=== PATIENT | female | born 1985 | race Caucasian/White ===

== ENCOUNTER 2016-11-11 16:21 | Emergency (ER) | payer OTHER ==
[~2016-11-11] VITALS: Ht 172.7 cm; Wt 54.4 kg
[2016-11-11 17:06] VITALS: BP 125/76
[2016-11-11 17:28] LABS: BASOPHILS % (AUTO) 1.2 % (0.0-2.0); EOSINOPHILS % (AUTO) 3.1 % (0.0-3.0); LYMPHOCYTES % (AUTO) 43.6 % (20.0-45.0); MEAN CORPUSCULAR HEMOGLOBIN 32.8 PG (27.0-31.0); MEAN CORPUSCULAR HGB CONC 35.4 G/DL (32.0-36.0); MEAN CORPUSCULAR VOLUME 93 FL (80-99); MEAN PLATELET VOLUME 8.3 FL (6.5-10.1); MONOCYTES % (AUTO) 6.6 % (1.0-10.0); NEUTROPHILS % (AUTO) 45.6 % (45.0-75.0); PLATELET COUNT 239 K/UL (150-450); RED BLOOD COUNT 3.96 M/UL (4.20-5.40); RED CELL DISTRIBUTION WIDTH 12.3 % (11.6-14.8); WHITE BLOOD COUNT 6.5 K/UL (4.8-10.8)
[2016-11-11] MEDS ORDERED: D5 1/2NS 1,000 ML IV SCH (17:40)
[2016-11-11 17:45] LABS: ALANINE AMINOTRANSFERASE 20 U/L (3-33); ALBUMIN/GLOBULIN RATIO 1.5 (1.0-2.7); ANION GAP 13 (5-15); ASPARTATE AMINO TRANSFERASE 23 U/L (5-40); CALCIUM 9.1 mg/dL (8.6-10.2); CARBON DIOXIDE 27 mEQ/L (20-30); CHLORIDE 99 mEQ/L (98-107); CREATININE 0.9 mg/dL (0.5-0.9); GLOMERULAR FILTRATION RATE > 60 mL/min (>60); HEMOLYSIS 5; LIPASE 77 U/L (< 60); POTASSIUM 3.9 mEQ/L (3.4-4.9); SODIUM 139 mEQ/L (135-145); TOTAL PROTEIN 6.3 g/dL (6.6-8.7)
[2016-11-11 19:13] VITALS: BP 125/92
[2016-11-11 19:20] LABS: APPEARANCE,URINE CLOUDY; KETONES,URINE NEGATIVE (NEGATIVE); LEUKOCYTE ESTERASE ,URINE NEGATIVE (NEGATIVE); NITRITE,URINE NEGATIVE (NEGATIVE); PH,URINE 8 (4.5-8.0); PROTEIN,URINE NEGATIVE (NEGATIVE); UROBILINOGEN,URINE NORMAL MG/DL (0.0-1.0)
[2016-11-11 19:27] LABS: AMORPHOUS SEDIMENT,UR MANY /LPF; BACTERIA,URINE MODERATE /HPF; RBC,URINE 0-2 /HPF (0 - 2); SQUAMOUS EPITHELIAL CELL,UR FEW /LPF (NONE/OCC); WBC,URINE 0-2 /HPF (0 - 2)
[2016-11-11 21:13] VITALS: BP 120/71
--- NOTE | 2016-11-11 21:35 | Emergency Room Report ---
History of Present Illness General Chief Complaint: Abdominal Pain Source: Patient Present Illness HPI This patient states that her symptoms initially started about 2 weeks ago. She states that she had abdominal pain that initially was in her upper abdomen. She states that it then migrated to her right and left lower abdomen. She states that when she looked on lying she thought she had pancreatitis. She does reported that she had a binge drinking episode just prior to the onset of the symptoms. The patient states that the only medications she is on is control. She denies drug use. She does smoke tobacco. She states that she's also had hematuria for the past day. She denies dysuria. She denies fever or chills. She denies chest pain or shortness of breath. Although, she has had fatigue and some shortness of breath on exertion. Patient states that her menstrual period was about 2 weeks ago. She does admit that she did miss 2 days of her control pills and may have some vaginal bleeding related to this. Allergies: Coded Allergies: No Known Allergies (Unverified , 11/11/16) Patient History Past Medical History: none, see triage record Past Surgical History: none Social History: Reports: alcohol use, smoking, Denies: drug use Last Menstrual Period: 10/31/16 Now: No Reviewed Nursing Documentation: PMH: Agreed, PSxH: Agreed Nursing Documentation-PMH Past Medical History: No Stated History Review of Systems All Other Systems: negative except mentioned in HPI Physical Exam Vital Signs Date Time Temp Pulse Resp B/P Pulse Ox O2 Delivery O2 Flow Rate FiO2 11/11/16 16:30 98.1 84 16 126/75 99 Room Air Sp02 EP Interpretation: reviewed, normal General Appearance: no apparent distress, alert, GCS 15, non-toxic Head: normocephalic, atraumatic Eyes: bilateral eye PERRL, bilateral eye normal inspection ENT: hearing grossly normal, normal pharynx, no angioedema, normal voice Neck: full range of motion, supple/symm/no masses Respiratory: chest non-tender, lungs clear, normal breath sounds, speaking full sentences Cardiovascular #1: regular rate, rhythm, no edema Gastrointestinal: normal bowel sounds, soft, non-distended, no guarding, no rebound, tenderness - TTP RLQ Rectal: deferred Musculoskeletal: back normal, gait/station normal, normal range of motion, non- tender Neurologic: alert, oriented x3, responsive, motor strength/tone normal, sensory intact, speech normal Psychiatric: judgement/insight normal, memory normal, mood/affect normal, no suicidal/homicidal ideation Skin: normal color, no rash, warm/dry, well hydrated Medical Decision Making Diagnostic Impression: Primary Impression: Mesenteric edema Additional Impressions: Elevated Right heart pressure Moses-portal Edema ER Course This patient presents with 2 weeks of abdominal pain and gross hematuria. On examination, the patient's to palpation in the right lower quadrant. She also complained of hematuria so I felt that I should obtain a CT of the abdomen and pelvis to further assess for appendicitis and urolithiasis. There is no evidence of appendicitis or urolithiasis on CT. Further, the patient's initial urinalysis has no red blood cells and therefore there is no evidence of hematuria. Later during the patient's ED course she did urinate and then showed me blood in the toilet that was more consistent with menstrual type bleeding. I did suggest to the patient that we could obtain a cath urinalysis to definitively determine this. However, she declined catheterization. I have low suspicion for hematuria at this time. It is very reassuring that there is no evidence of urolithiasis. The patient is incidentally found to have evidence of very poor no edema, mesenteric edema consistent with elevated right heart pressure. Patient does not report any chest pain or pedal edema. I did obtain a chest x-ray which was unremarkable with a normal cardiac silhouette and lung low. Also, d-dimer is negative which essentially rules out PE. I am unsure of the etiology of the patient's moses-portal edema. The patient does have a slightly elevated lipase. This could be a resolving pancreatitis. Especially given the patient's symptoms started after a binge drinking episode. Unsure of the patient's abdominal findings on CT. This could be pulmonary hypertension. I had planned on admitting this patient. However, the patient's insurance did not approve admission to [facility] and requested the patient's transfer to [facility]. The patient is stable for transfer. However, the patient adamantly declined to transfer to [facility]. She states she is uncomfortable at this hospital. The patient was educated by registration that she could put down a deposit to be admitted to this hospital and that she may be billed for the hospitalization. The patient decided to leave AGAINST MEDICAL ADVICE and not be transferred to [facility]. Patient is stable with normal vital signs. She was instructed to followup closely with her primary care physician for further referrals to likely a personnel security specialist and possibly a internal control specialist for further investigation. Other considerations include close monitoring and repeat imaging. Regardless, the patient was invited to return for any worsening symptoms. She left AGAINST MEDICAL ADVICE. Labs Test 11/11/16 16:55 11/11/16 18:00 White Blood Count 6.5 K/UL (4.8-10.8) Red Blood Count 3.96 M/UL (4.20-5.40) Hemoglobin 13.0 G/DL (12.0-16.0) Hematocrit 36.7 % (37.0-47.0) Mean Corpuscular Volume 93 FL (80-99) Mean Corpuscular Hemoglobin 32.8 PG (27.0-31.0) Mean Corpuscular Hemoglobin Concent 35.4 G/DL (32.0-36.0) Red Cell Distribution Width 12.3 % (11.6-14.8) Platelet Count 239 K/UL (150-450) Mean Platelet Volume 8.3 FL (6.5-10.1) Neutrophils (%) (Auto) 45.6 % (45.0-75.0) Lymphocytes (%) (Auto) 43.6 % (20.0-45.0) Monocytes (%) (Auto) 6.6 % (1.0-10.0) Eosinophils (%) (Auto) 3.1 % (0.0-3.0) Basophils (%) (Auto) 1.2 % (0.0-2.0) D-Dimer < 100 ng/mL (<500) Sodium Level 139 mEQ/L (135-145) Potassium Level 3.9 mEQ/L (3.4-4.9) Chloride Level 99 mEQ/L (98-107) Carbon Dioxide Level 27 mEQ/L (20-30) Anion Gap 13 (5-15) Blood Urea Nitrogen 17 mg/dL (7-23) Creatinine 0.9 mg/dL (0.5-0.9) Estimat Glomerular Filtration Rate > 60 mL/min (>60) Glucose Level 94 mg/dL (74-106) Calcium Level 9.1 mg/dL (8.6-10.2) Total Bilirubin < 0.2 mg/dL (0.0-1.2) Aspartate Amino Transf (AST/SGOT) 23 U/L (5-40) Alanine Aminotransferase (ALT/SGPT) 20 U/L (3-33) Alkaline Phosphatase 44 U/L (35-104) Troponin I < 0.30 ng/mL (<=0.30) Total Protein 6.3 g/dL (6.6-8.7) Albumin 3.8 g/dL (3.5-5.2) Globulin 2.5 g/dL Albumin/Globulin Ratio 1.5 (1.0-2.7) Lipase 77 U/L (< 60) Urine Color Pale yellow Urine Appearance Cloudy Urine pH 8 (4.5-8.0) Urine Specific [place] 1.010 (1.005-1.035) Urine Protein Negative (NEGATIVE) Urine Glucose (UA) Negative (NEGATIVE) Urine Ketones Negative (NEGATIVE) Urine Occult Blood 5+ (NEGATIVE) Urine Nitrite Negative (NEGATIVE) Urine Bilirubin Negative (NEGATIVE) Urine Urobilinogen Normal MG/DL (0.0-1.0) Urine Leukocyte Esterase Negative (NEGATIVE) Urine RBC 0-2 /HPF (0 - 2) Urine WBC 0-2 /HPF (0 - 2) Urine Squamous Epithelial Cells Few /LPF (NONE/OCC) Urine Amorphous Sediment Many /LPF (NONE) Urine Bacteria Moderate /HPF (NONE) Urine HCG, Qualitative Negative Labs Test 11/11/16 16:55 11/11/16 18:00 White Blood Count 6.5 K/UL (4.8-10.8) Red Blood Count 3.96 M/UL (4.20-5.40) Hemoglobin 13.0 G/DL (12.0-16.0) Hematocrit 36.7 % (37.0-47.0) Mean Corpuscular Volume 93 FL (80-99) Mean Corpuscular Hemoglobin 32.8 PG (27.0-31.0) Mean Corpuscular Hemoglobin Concent 35.4 G/DL (32.0-36.0) Red Cell Distribution Width 12.3 % (11.6-14.8) Platelet Count 239 K/UL (150-450) Mean Platelet Volume 8.3 FL (6.5-10.1) Neutrophils (%) (Auto) 45.6 % (45.0-75.0) Lymphocytes (%) (Auto) 43.6 % (20.0-45.0) Monocytes (%) (Auto) 6.6 % (1.0-10.0) Eosinophils (%) (Auto) 3.1 % (0.0-3.0) Basophils (%) (Auto) 1.2 % (0.0-2.0) Sodium Level 139 mEQ/L (135-145) Potassium Level 3.9 mEQ/L (3.4-4.9) Chloride Level 99 mEQ/L (98-107) Carbon Dioxide Level 27 mEQ/L (20-30) Anion Gap 13 (5-15) Blood Urea Nitrogen 17 mg/dL (7-23) Creatinine 0.9 mg/dL (0.5-0.9) Estimat Glomerular Filtration Rate > 60 mL/min (>60) Glucose Level 94 mg/dL (74-106) Calcium Level 9.1 mg/dL (8.6-10.2) Total Bilirubin < 0.2 mg/dL (0.0-1.2) Aspartate Amino Transf (AST/SGOT) 23 U/L (5-40) Alanine Aminotransferase (ALT/SGPT) 20 U/L (3-33) Alkaline Phosphatase 44 U/L (35-104) Total Protein 6.3 g/dL (6.6-8.7) Albumin 3.8 g/dL (3.5-5.2) Globulin 2.5 g/dL Albumin/Globulin Ratio 1.5 (1.0-2.7) Lipase 77 U/L (< 60) Urine Color Pale yellow Urine Appearance Cloudy Urine pH 8 (4.5-8.0) Urine Specific [place] 1.010 (1.005-1.035) Urine Protein Negative (NEGATIVE) Urine Glucose (UA) Negative (NEGATIVE) Urine Ketones Negative (NEGATIVE) Urine Occult Blood 5+ (NEGATIVE) Urine Nitrite Negative (NEGATIVE) Urine Bilirubin Negative (NEGATIVE) Urine Urobilinogen Normal MG/DL (0.0-1.0) Urine Leukocyte Esterase Negative (NEGATIVE) Urine RBC 0-2 /HPF (0 - 2) Urine WBC 0-2 /HPF (0 - 2) Urine Squamous Epithelial Cells Few /LPF (NONE/OCC) Urine Amorphous Sediment Many /LPF (NONE) Urine Bacteria Moderate /HPF (NONE) Urine HCG, Qualitative Negative EKG Diagnostic Results Rate: normal Rhythm: NSR ST Segments: no acute changes Other Impression Flipped P waves Rhythm Strip Diag. Results EP Interpretation: yes Rate: 70's Rhythm: NSR, no PVC's, no ectopy Chest X-Ray Diagnostic Results EP Interpretation: Yes Findings: no consolidation, no effusion, no pneumothorax, no acute cardiopulmonary disease Number of Views: 1 CT/MRI/US Diagnostic Results CT/MRI/US Diagnostic Results : Imaging Test Ordered: CT abd/pelvis Impression Fecalization and distention of multiple distal small bowel loops consistent with constipation and ileus. Distended IVC, hepatic veins and moses-portal edema , mesenteric edema consistent with an elevated right heart pressure. Gallbladder wall thickening probably due to the same. See official report. Last Vital Signs Date Time Temp Pulse Resp B/P Pulse Ox O2 Delivery O2 Flow Rate FiO2 11/11/16 19:13 82 18 125/92 99 Room Air 11/11/16 16:30 98.1 Disposition: AGAINST MEDICAL ADVICE Condition: Stable Referrals: NON PHYSICIAN (PCP) JUDITH VELARDE D.O. November 11, 2016 21:35
[2016-11-11] MEDS ORDERED: Miralax 17gm pkt ORAL PRN (22:15)
[2016-11-11] MEDS ORDERED: Mylanta II UD 30ml ORAL PRN (22:15)
[2016-11-11] MEDS ORDERED: Morphine Sulfate 2mg/ml Inj IVP PRN (22:15)
[2016-11-11] MEDS ORDERED: Nitroglycerin Subl 0.4mg tab (Bottle Of 25) SL PRN (22:15)
[2016-11-11 23:27] LABS: TROPONIN I < 0.30 ng/mL (<=0.30)
[2016-11-11 23:33] VITALS: BP 128/91
[2016-11-12] MEDS ORDERED: Piperacillin/Tazobactam 3.375 GM in NS 110 ML IVPB SCH (02:30)
[2016-11-12] MEDS ORDERED: Heparin 5000 units/ml inj SUBQ SCH (09:00)
[2016-11-12] MEDS ORDERED: Pantoprazole Inj IVP SCH (09:00)
--- NOTE | 2016-11-12 11:15 | Diagnostic Imaging Report ---
Indication: Dyspnea Comparison: None 2 views of the chest obtained. Findings: Cardiomediastinal silhouette and pulmonary vascularity are within normal limits for age. The diaphragmatic contour is smooth and costophrenic angles are sharp. No pleural effusions are identified. The bones are unremarkable. Impression: No acute disease
--- NOTE | 2016-11-12 12:24 | Diagnostic Imaging Report ---
Indication: Abdominal pain Technique: Continuous helical transaxial imaging of the abdomen and pelvis was obtained from the lung bases to the pubic symphysis during intravenous contrast administration. Coronal 2-D reformats were also obtained. Study obtained in a Siemens sensation [address] Total Dose length Product (DLP): [address] Dose Index Volume (CTDIvol): 14 mGy Comparison: None Findings: The lung bases are clear. There is moderate fecal retention with generalized distention of small bowel loops especially distally. There is fecal material within the terminal ileum. Periportal edema is noted. Gallstones versus sludge demonstrate there is no hydronephrosis. The spleen, pancreas and adrenal glands are unremarkable in appearance. No free fluid or free air is identified. Uterus noted. Bladder is unremarkable. Impression: Moderate fecal retention with reflux stool in to the terminal ileum indicative of stasis. Please correlate clinically. Suspected gallstones. Periportal edema nonspecific. Dr. Rodriguez has communicated the preliminary results to the Emergency Department. There are no significant discrepancies. The CT scanner at [facility] is accredited by the [employer] and the scans are performed using protocols designed to limit radiation exposure to as low as reasonably achievable to attain images of sufficient resolution adequate for diagnostic evaluation.
--- NOTE | 2016-11-12 17:09 | Cardiology Report ---
APPROVED REPORT EKG Measurement Heart [id number] [id number] Unusual P axis, possible ectopic atrial rhythm Abnormal ECG
== END 2016-11-11 23:33 | disposition left against medical advice (07) ==
LOC: EMR 18:01 → EDBEDREQ 21:51 → EDBEDREQSVC 21:51 → EMR 23:33
DX: R60.9 Edema, unspecified (principal); R03.0 Elevated blood-pressure reading, without diagnosis of hypertension; Z79.3 Long term (current) use of hormonal contraceptives; R06.02 Shortness of breath; F17.200 Nicotine dependence, unspecified, uncomplicated
CPT/HCPCS: 36415; 71020; 74177; 80053; 81003; 81025; 83690; 84484; 85025; 85379; 87086; 93005; 96374; 96375; 99284; J2405; Q9967